=== PATIENT | female | born 1960 | race Caucasian/White ===

== ENCOUNTER → 2025-03-28 | Outpatient (REF) | payer MEDICARE | LOC: M SFHCRHEU 11:15 | PROVIDERS: ATTEND Internal Medicine | DX: M25.50 Pain in unspecified joint (principal) ==

== ENCOUNTER → 2025-08-23 | Outpatient (REF) | payer MEDICARE, MEDICAID ==
[2025-08-23 18:08] LABS: IRON (FE) 78.0 UG/DL (50-170); MAGNESIUM LEVEL 2.1 MG/DL (1.8-2.4); PERCENT SATURATION 21.6 % (13.2-45.0); PHOSPHORUS LEVEL 3.1 MG/DL (2.4-5.1); PTH INTACT 70.9 PG/ML (18.5-88.0)
== END ==
LOC: M SFHCRHEU 13:44
PROVIDERS: ATTEND Internal Medicine
DX: M11.261 Other chondrocalcinosis, right knee (principal); M25.50 Pain in unspecified joint; Z79.899 Other long term (current) drug therapy